=== PATIENT | female | born 1995 | race Caucasian/White ===

== ENCOUNTER 2019-01-25 00:52 | Observation (INO) | payer OTHER ==
[2019-01-25 04:56] LABS: BILIRUBIN,URINE NEGATIVE (NEG); CLARITY,URINE CLEAR; COLOR,URINE YELLOW; NITRITE,URINE NEGATIVE (NEG); PROTEIN,URINE NEGATIVE (NEG-TRACE); UROBILINOGEN,URINE 0.2 mg/dL (0.2 mg/dL)
[2019-01-25 05:06] LABS: BACTERIA,URINE MANY /HPF (0-FEW); RBC,URINE OCC /HPF (0-2); SQUAMOUS EPITHELIAL CELL,UR MOD /LPF
== END 2019-01-25 01:15 | disposition home or self-care (01) ==
LOC: 3 SO LND 00:52
PROVIDERS: ADMIT Obstetrics & Gynecology; ATTEND Obstetrics & Gynecology
DX: O36.8130 Decreased fetal movements, third trimester, not applicable or unspecified (principal); Z3A.38 38 weeks gestation of pregnancy
CPT/HCPCS: 81001; 87086; G0379; 59025; G0378

== ENCOUNTER 2019-02-05 18:25 | Inpatient (IN) | payer OTHER ==
[~2019-02-05] VITALS: Ht 152.4 cm; Wt 117.5 kg
[2019-02-05] MEDS ORDERED: TERBUTALINE 1 MG/ML VIAL. SQ PRN (19:00)
[2019-02-05] MEDS ORDERED: fentaNYL PF VIAL 100 MCG/2 ML VIAL IV PRN (19:00)
[2019-02-05] MEDS ORDERED: LIDOCAINE 1% PF 30 ML VIAL. INJ PRN (19:00)
[2019-02-05] MEDS ORDERED: ONDANSETRON PF 4 MG/2 ML VIAL. IV PRN (19:00)
[2019-02-05] MEDS ORDERED: OXYTOCIN 30 UNIT/500 ML PREMIX 500 ML IV PRN ×2 (19:00)
[2019-02-05] MEDS ORDERED: NALBUPHINE 10 MG/ML AMPUL. IV PRN ×2 (19:00)
[2019-02-05] MEDS ORDERED: MAG HYDROX/ALUMINUM HYD/SIMETH 30 ML ORAL.SUSP PO PRN (19:00)
[2019-02-05] MEDS ORDERED: 0.9 % SODIUM CHLORIDE 10 ML DISP.SYRIN. IV PRN (19:00)
[2019-02-05] MEDS ORDERED: diphenhydrAMINE HCL 25 MG CAPSULE PO PRN (19:00)
[2019-02-05] MEDS ORDERED: DINOPROSTONE 10 MG SUPP.VAG VG ONE (19:00)
[2019-02-05] MEDS: IV RINGERS,LACTATED 1000ML 1,000 ML IV SCH (19:13)
[2019-02-05 19:26] VITALS: BP 113/71
[2019-02-05 19:36] LABS: BASO % 0 % (0-3); EOS % 0 % (0-3); HEMATOCRIT 37.9 % (36.0-47.0); HEMOGLOBIN 13.1 g/dL (12.0-15.5); LYMPH # 1.5 x10^3/uL (1.0-4.8); LYMPH % 13 % (24-48); MEAN CORPUSCULAR HEMOGLOBIN 33 pg (25-35); MEAN CORPUSCULAR HGB CONC 35 g/dL (31-37); MEAN CORPUSCULAR VOLUME 97 fL (79-100); MONO # 0.5 x10^3/uL (0.0-1.1); MONO % 4 % (0-9); NEUT # 9.3 x10^3/uL (1.8-7.7); NEUT % 82 % (31-73); PLATELET COUNT 138 x10^3/uL (140-400); RED BLOOD COUNT 3.93 x10^6/uL (3.50-5.40); RED CELL DISTRIBUTION WIDTH 13.7 % (11.5-14.5); WHITE BLOOD COUNT 11.3 x10^3/uL (4.0-11.0)
--- NOTE | 2019-02-06 06:21 | PDOC1 ---
OB - History Hx of Present Care: Good Care Ultrasounds: No ultrasounds Obstetrical Complications: None Medical Complications: None Past Family/Social History * Past Medical, Surgical, Family and Obstetric Histories reviewed from chart. Rubella: Immune RPR/VDRL: Negative GBS Status: Negative HBsAG: Negative OB - Chief Complaint & HPI Date of Admission: Date of Admission: Feb 05, 2019 at 18:25 Chief Complaint/History : 1 Para: 0 EGA: 40 Reason for admission: induction of labor Indication for induction: post dates Admission Nurse Assessment Rev: Yes OB - Admission Exam Physical Exam Vitals: VS - Last 72 Hours, by Label Date Time Temp Pulse Resp B/P (MAP) Pulse Ox O2 Delivery O2 Flow Rate FiO2 02/05/19 19:26 98.6 100 18 113/71 (85) 98.6 HEENT: Normal Heart: Regular Rate Lungs: Clear Abdomen: Gravid, Non tender, Soft Extremities: Edema Reflexes: Normal Cervical Dilatation: 2cm Effacement: 75% Station: -3 Membranes: Intact Heart Rate: Normal Accelerations: Accelerations Present Decelerations: No decelerations Contractions on Admission: None Text A: 40 wks IUP IOL post term P: Admit induction cervidil, then pitocin. DANTE JOHNSON Jr, MD Feb 06, 2019 06:21
[2019-02-06] MEDS: IV RINGERS,LACTATED 1000ML 1,000 ML IV SCH ×3 (09:40→18:46)
[2019-02-06] MEDS ORDERED: ACETAMINOPHEN 325 MG TABLET. PO PRN (12:15)
[2019-02-06] MEDS ORDERED: IV RINGERS,LACTATED 1000ML 1,000 ML IV SCH (12:49)
[2019-02-06] MEDS ORDERED: ROPIVacaine 0.2% PF 10 ML VIAL. ONE ×3 (12:51→21:51)
[2019-02-06] MEDS ORDERED: NALOXONE 0.4 MG/ML VIAL. IV PRN (13:00)
[2019-02-06] MEDS ORDERED: BUPIVACAINE MPF 0.25% 30 ML VIAL. EPID PRN (13:00)
[2019-02-06] MEDS ORDERED: ROPIVacaine 0.2% IN 0.9%NACL PF 40 MG/20 ML DISP.SYRIN. EPID PRN (13:00)
[2019-02-06] MEDS ORDERED: fentaNYL PF VIAL 100 MCG/2 ML VIAL EPID PRN (13:00)
[2019-02-06] MEDS: L&D EPIDURAL SYRINGE 50 ML EPID PRN ×3 (13:27→22:01)
[2019-02-06] MEDS ORDERED: L&D EPIDURAL 50 ML SYRINGE. ONE (17:00)
[2019-02-07] MEDS ORDERED: oxyCODONE/APAP 5/325 1 TAB TABLET PO PRN (01:00)
[2019-02-07] MEDS ORDERED: SIMETHICONE 80 MG TAB.CHEW PO PRN (01:00)
[2019-02-07] MEDS ORDERED: ZOLPIDEM 5 MG TABLET. PO PRN (01:00)
[2019-02-07] MEDS ORDERED: MAGNESIUM HYDROXIDE 2,400 MG/30 ML ORAL.SUSP. PO PRN (01:00)
[2019-02-07] MEDS ORDERED: MMR per PROTOCOL. MC PRN (01:00)
[2019-02-07] MEDS ORDERED: BENZOCAINE 20% TOPICAL AEROSOL SPRAY 57GM CAN. TP PRN (01:00)
[2019-02-07] MEDS ORDERED: 0.9 % SODIUM CHLORIDE 10 ML DISP.SYRIN. IV PRN (01:00)
[2019-02-07] MEDS ORDERED: ACETAMINOPHEN 325 MG TABLET. PO PRN (01:00)
[2019-02-07] MEDS ORDERED: MAG HYDROX/ALUMINUM HYD/SIMETH 30 ML ORAL.SUSP PO PRN (01:00)
[2019-02-07] MEDS ORDERED: HYDROCORTISONE 1% TOPICAL OINTMENT 30GM TUBE. TP PRN (01:00)
[2019-02-07] MEDS ORDERED: PHENYLEPH/MINERAL OIL/PETROLAT RECTAL OINTMENT TUBE. RC PRN (01:00)
[2019-02-07] MEDS ORDERED: diphenhydrAMINE HCL 25 MG CAPSULE PO PRN (01:00)
[2019-02-07] MEDS ORDERED: OXYTOCIN 30 UNIT/500 ML PREMIX 500 ML IV PRN (01:00)
[2019-02-07] MEDS: IV RINGERS,LACTATED 1000ML 1,000 ML IV SCH ×3 (02:46→17:10)
[2019-02-07 03:45] VITALS: BP 100/40
[2019-02-07 05:45] VITALS: BP 123/66
[2019-02-07] MEDS: DOCUSATE SODIUM 100 MG CAPSULE. PO PRN ×2 (08:52→17:11)
[2019-02-07] MEDS: FERROUS SULFATE 325 MG TABLET. PO SCH ×2 (08:53→17:11)
[2019-02-07] MEDS: IBUPROFEN 400 MG TABLET. PO PRN ×2 (08:54→20:58)
[2019-02-07 09:00] VITALS: BP 124/82
--- NOTE | 2019-02-07 12:25 | PDOC ---
VAGINAL DELIVERY DATE DATE: 02/07/19 TIME: 12:24 : 1 Para: 1 EGA: 40 VAGINAL DELIVERY: VTX VACCUM ASSISTED: No PLACENTA: Spontaneous 8/9 WEIGHT Weight [pending ] Nuchal Cord: No Amniotic Fluid: Clear PAIN: Epidural EPISIOTOMY: No EXTENSION: Yes (2nd degree midline laceration) REPAIRED WITH 2-0 vicryl EBL 300 ml COMPLICATIONS none CONDITION pt. stable Signs of Intrauterine Infectio: None Shoulder Dystocia: No DANTE JOHNSON Jr, MD Feb 07, 2019 12:25
[2019-02-07] MEDS ORDERED: DIPHTH,PERTUSS(ACELL),TET TOX 0.5 ML DISP.SYRIN. VAX IM ONE (12:30)
[2019-02-07 12:36] VITALS: BP 114/73
[2019-02-07 15:06] VITALS: BP 128/78
[2019-02-07 20:00] VITALS: BP 123/69
[2019-02-08] MEDS: IV RINGERS,LACTATED 1000ML 1,000 ML IV SCH ×2 (02:46→10:46)
[2019-02-08 05:04] LABS: BASO % 0 % (0-3); EOS # 0.2 x10^3/uL (0.0-0.7); EOS % 2 % (0-3); HEMATOCRIT 29.6 % (36.0-47.0); HEMOGLOBIN 10.2 g/dL (12.0-15.5); LYMPH # 2.1 x10^3/uL (1.0-4.8); LYMPH % 21 % (24-48); MEAN CORPUSCULAR HEMOGLOBIN 34 pg (25-35); MEAN CORPUSCULAR HGB CONC 35 g/dL (31-37); MEAN CORPUSCULAR VOLUME 98 fL (79-100); MONO # 0.6 x10^3/uL (0.0-1.1); MONO % 6 % (0-9); NEUT # 6.9 x10^3/uL (1.8-7.7); NEUT % 71 % (31-73); PLATELET COUNT 105 x10^3/uL (140-400); RED BLOOD COUNT 3.01 x10^6/uL (3.50-5.40); WHITE BLOOD COUNT 9.7 x10^3/uL (4.0-11.0)
[2019-02-08 05:13] VITALS: BP 140/83
[2019-02-08] MEDS ORDERED: FERROUS SULFATE 325 MG TABLET. PO SCH (08:00)
[2019-02-08] MEDS: FERROUS SULFATE 325 MG TABLET. PO SCH ×2 (09:08→17:19)
--- NOTE | 2019-02-08 10:01 | PDOC ---
OB Progress Note Date of Service 02/08/19 Time of Evaluation 1000 Notes Pt. feeling well. No complaints. Breast feeding. Lab Laboratory Tests Test 02/08/19 04:40 White Blood Count 9.7 x10^3/uL (4.0-11.0) Red Blood Count 3.01 x10^6/uL (3.50-5.40) Hemoglobin 10.2 g/dL (12.0-15.5) Hematocrit 29.6 % (36.0-47.0) Mean Corpuscular Volume 98 fL (79-100) Mean Corpuscular Hemoglobin 34 pg (25-35) Mean Corpuscular Hemoglobin Concent 35 g/dL (31-37) Red Cell Distribution Width 14.0 % (11.5-14.5) Platelet Count 105 x10^3/uL (140-400) Neutrophils (%) (Auto) 71 % (31-73) Lymphocytes (%) (Auto) 21 % (24-48) Monocytes (%) (Auto) 6 % (0-9) Eosinophils (%) (Auto) 2 % (0-3) Basophils (%) (Auto) 0 % (0-3) Neutrophils # (Auto) 6.9 x10^3/uL (1.8-7.7) Lymphocytes # (Auto) 2.1 x10^3/uL (1.0-4.8) Monocytes # (Auto) 0.6 x10^3/uL (0.0-1.1) Eosinophils # (Auto) 0.2 x10^3/uL (0.0-0.7) Basophils # (Auto) 0.0 x10^3/uL (0.0-0.2) Laboratory Tests Test 02/08/19 04:40 White Blood Count 9.7 x10^3/uL (4.0-11.0) Red Blood Count 3.01 x10^6/uL (3.50-5.40) Hemoglobin 10.2 g/dL (12.0-15.5) Hematocrit 29.6 % (36.0-47.0) Mean Corpuscular Volume 98 fL (79-100) Mean Corpuscular Hemoglobin 34 pg (25-35) Mean Corpuscular Hemoglobin Concent 35 g/dL (31-37) Red Cell Distribution Width 14.0 % (11.5-14.5) Platelet Count 105 x10^3/uL (140-400) Neutrophils (%) (Auto) 71 % (31-73) Lymphocytes (%) (Auto) 21 % (24-48) Monocytes (%) (Auto) 6 % (0-9) Eosinophils (%) (Auto) 2 % (0-3) Basophils (%) (Auto) 0 % (0-3) Neutrophils # (Auto) 6.9 x10^3/uL (1.8-7.7) Lymphocytes # (Auto) 2.1 x10^3/uL (1.0-4.8) Monocytes # (Auto) 0.6 x10^3/uL (0.0-1.1) Eosinophils # (Auto) 0.2 x10^3/uL (0.0-0.7) Basophils # (Auto) 0.0 x10^3/uL (0.0-0.2) Medications Current Medications Sodium Chloride (Normal Saline Flush) 3 ml QSHIFT PRN IV AFTER MEDS AND BLOOD DRAWS; Start 02/05/19 at 19:00 Ringer's Solution 1,000 ml @ 125 mls/hr Q8H IV Last administered on 02/06/19at 13:53; Start 02/05/19 at 18:46 Nalbuphine HCl (Nubain) 5 mg PRN Q1HR PRN IV Mild to moderate labor pain; Start 02/05/19 at 19:00; Stop 02/07/19 at 09:54; Status DC Nalbuphine HCl (Nubain) 10 mg PRN Q1HR PRN IV Severe labor pain; Start 9 at 19:00; Stop 02/07/19 at 09:55; Status DC Fentanyl Citrate (Fentanyl 2ml Vial) 100 mcg PRN Q30MIN PRN IV Severe pain Last administered on 02/06/19at 12:31; Start 02/05/19 at 19:00 Ondansetron HCl (Zofran) 4 mg PRN Q4HRS PRN IV NAUSEA/VOMITING; Start 02/05/19 at 19:00 Al Hydroxide/Mg Hydroxide (Mylanta Plus Xs) 30 ml PRN Q4HRS PRN PO HEARTBURN / GAS; Start 02/05/19 at 19:00; Stop 02/07/19 at 09:55; Status DC Terbutaline Sulfate (Brethine) 0.25 mg 1X PRN PRN SQ SEE COMMENTS; Start 02/05/19 at 19:00; Stop 02/06/19 at 18:59; Status DC Lidocaine HCl (Xylocaine 1% Pf 30ml Vial) 30 ml 1X PRN PRN INJ SEE COMMENTS; Start 02/05/19 at 19:00; Stop 02/07/19 at 18:59; Status DC Oxytocin/Sodium Chloride 500 ml @ 0 mls/hr CONT PRN IV SEE I/O RECORD; Start 02/05/19 at 19:00 Oxytocin/Sodium Chloride 500 ml @ 0 mls/hr CONT PRN PRN IV Post delivery bleeding Last administered on 02/06/19at 06:06; Start 02/05/19 at 19:00 Dinoprostone (Cervidil) 10 mg 1X ONCE VG Last administered on 02/05/19at 19:13; Start 02/05/19 at 19:00; Stop 02/05/19 at 19:01; Status DC Diphenhydramine HCl (Benadryl) 50 mg PRN QHS PRN PO INSOMNIA Last administered on 02/06/19at 02:13; Start 02/05/19 at 19:00 Acetaminophen (Tylenol) 650 mg PRN Q6HRS PRN PO HEADACHE Last administered on 02/06/19at 12:25; Start 02/06/19 at 12:15; Stop 02/07/19 at 09:55; Status DC Ringer's Solution 1,000 ml @ 1,000 mls/hr Q1H IV Last administered on 02/06/19at 19:04; Start 02/06/19 at 12:49; Stop 02/06/19 at 13:48; Status DC Naloxone HCl (Narcan) 0.04 mg PRN Q1MIN PRN IV SEE COMMENTS; Start 02/06/19 at 13:00 Fentanyl Citrate (Fentanyl 2ml Vial) 100 mcg PRN 1X PRN EPID FOR ANESTHESIA; Start 02/06/19 at 13:00; Stop 02/07/19 at 12:59; Status DC Bupivacaine HCl (Sensorcaine Mpf 0.25%) 10 ml PRN 1X PRN EPID FOR ANESTHESIA; Start 02/06/19 at 13:00; Stop 02/07/19 at 12:59; Status DC Fentanyl Citrate 50 ml @ 14 mls/hr CONT PRN EPID PAIN Last administered on 02/06/19at 22:01; Start 02/06/19 at 13:00 Ropivacaine/ Sodium Chloride (ROPIVacaine 0.2% - 0.9%NACL PF) 40 mg 1X PRN PRN EPID PER ANESTHESIA; Start 02/06/19 at 13:00 Ropivacaine (Naropin 0.2%) 10 ml STK-MED ONCE .ROUTE ; Start 02/06/19 at 12:51; Stop 02/06/19 at 12:51; Status DC Ropivacaine (Naropin 0.2%) 10 ml STK-MED ONCE .ROUTE ; Start 02/06/19 at 21:51; Stop 02/06/19 at 21:51; Status DC Sodium Chloride (Normal Saline Flush) 10 ml QSHIFT PRN IV AFTER MEDS AND BLOOD DRAWS; Start 02/07/19 at 01:00 Oxytocin/Sodium Chloride 500 ml @ 62.5 mls/hr CONT PRN IV SEE I/O RECORD; Start 02/07/19 at 01:00; Stop 02/07/19 at 08:59; Status DC Acetaminophen (Tylenol) 650 mg PRN Q6HRS PRN PO MILD PAIN / TEMP; Start 02/07/19 at 01:00 Ibuprofen (Motrin) 800 mg PRN Q8HRS PRN PO INFLAMMATION/PAIN PREVENTION Last administered on 02/07/19at 20:58; Start 02/07/19 at 01:00 Docusate Sodium (Colace) 100 mg PRN BID PRN PO CONSTIPATION Last administered on 02/07/19at 17:11; Start 02/07/19 at 01:00 Magnesium Hydroxide (Milk Of Magnesia) 2,400 mg PRN DAILY PRN PO CONSTIPATION; Start 02/07/19 at 01:00 Al Hydroxide/Mg Hydroxide (Mylanta Plus Xs) 30 ml PRN Q4HRS PRN PO HEARTBURN / GAS; Start 02/07/19 at 01:00 Simethicone (Gas-X) 80 mg PRN AFTMEALHC PRN PO GAS / BLOATING; Start 02/07/19 at 01:00 Diphenhydramine HCl (Benadryl) 25 mg PRN Q6HRS PRN PO ITCHING; Start 02/07/19 at 01:00 Benzocaine (Americaine) 1 spray PRN QID PRN TP TOPICAL PAIN; Start 02/07/19 at 01:00 Phenyleph/Shark Oil/Min Oil/Petrol (Preparation H) 1 archana PRN QID PRN RC RECTAL PAIN; Start 02/07/19 at 01:00 Hydrocortisone (Cortaid) 1 archana PRN QID PRN TP PERINEAL PAIN; Start 02/07/19 at 01:00 Ferrous Sulfate (Feosol) 325 mg BIDWMEALS PO ; Start 02/08/19 at 08:00; Stop 02/07/19 at 08:42; Status DC Zolpidem Tartrate (Ambien) 5 mg PRN QHS PRN PO INSOMNIA, MAY REPEAT X1; Start 02/07/19 at 01:00 Info (Do NOT chart on this placeholder) 1 ea 1X PRN PRN MC SEE COMMENTS; Start 02/07/19 at 01:00 Info (Do NOT chart on this placeholder) 1 ea 1X PRN PRN MC SEE COMMENTS; Start 02/07/19 at 01:00 Oxycodone/ Acetaminophen (Percocet 5/325) 2 tab PRN Q4HRS PRN PO MODERATE PAIN, SEVERE PAIN Last administered on 02/07/19at 15:00; Start 02/07/19 at 01:00 Ferrous Sulfate (Feosol) 325 mg BIDWMEALS PO Last administered on 02/08/19at 09:08; Start 02/07/19 at 08:45 Fentanyl Citrate (Jqylwpck-Vvhby-YH 3 Mcg-0.1%) 50 ml STK-MED ONCE .ROUTE ; Start 02/06/19 at 17:00; Stop 02/07/19 at 09:18; Status DC Ropivacaine (Naropin 0.2%) 20 ml STK-MED ONCE .ROUTE ; Start 02/06/19 at 17:00; Stop 02/07/19 at 09:18; Status DC Diphtheria/ Tetanus/Acell Pertussis (Boostrix) 0.5 ml ONCE ONCE VAX IM ; Start 02/07/19 at 12:30; Stop 02/07/19 at 12:31; Status DC Exam Abd: soft, non tender, fundus firm Assessment PPD#1 s/p Plan of Care: Continue current Tx, Mgmt PEGHEE,DANTE G Jr MD Feb 08, 2019 10:01
[2019-02-08 10:51] VITALS: BP 151/81
[2019-02-08] MEDS: DOCUSATE SODIUM 100 MG CAPSULE. PO PRN (17:22)
[2019-02-08 20:25] VITALS: BP 130/77
[2019-02-08] MEDS: IBUPROFEN 400 MG TABLET. PO PRN (23:01)
[2019-02-09 05:54] VITALS: BP 122/69
[2019-02-09 08:48] VITALS: BP 147/94
[2019-02-09] MEDS: FERROUS SULFATE 325 MG TABLET. PO SCH (09:39)
[2019-02-09] MEDS: IBUPROFEN 400 MG TABLET. PO PRN (09:58)
[2019-02-09 12:03] VITALS: BP 126/78
--- NOTE | 2019-02-09 13:31 | PDOC3 ---
OB DISCHARGE SUMMARY DATE OF ADMISSION: 02/06/19 DATE OF DISCHARGE: 02/09/19 REASON FOR ADMISSION: Induction of labor INTRAPARTUM PROCEDURES: Spontanous Vag Deliv DISCHARGE DIAGNOSIS: Term Delivered DISCHARGE INFORMATION: Activity (ad carl), Diet (regular), Instructions (pelvic rest x 6 wks) HOSPITAL COURSE Term gestation delivered vaginally without complications DANTE JOHNSON Jr, MD Feb 09, 2019 13:31
[2019-02-09] MEDS ORDERED: IBUP-1027 PO (13:32)
--- NOTE | 2019-02-09 13:32 | DISCH ---
DISCHARGE INSTRUCTIONS Condition on Discharge Condition on Discharge: Stable Activity After Discharge Activity Instructions for Disc: Activity as tolerated Lifting Instructions after Dis: No heavy lifting Driving Instructions after Dis: Do not drive today Diet after Discharge Diet after Discharge: Regular Contacting the [facility]eli after DC Call your doctor for: Concerns you may have Follow-Up Follow up with: Dr. Kwon in 6 wks DANTE KWON Jr, MD Feb 09, 2019 13:32
--- NOTE | 2019-02-09 14:05 | NUR ---
Discharge Note: WANDY ANSARI [address] Discharge instructions and discharge home medications reviewed with Patient and a copy given. All questions have been answered and understanding verbalized. Pt. instructions and handouts were given. Pt. educated about and encouraged to use "[facility]" resource. Patient discharged to home with self-care. Pt. will be boarding until baby is discharged. Boarding education and information was provided to pt. and family.
== END 2019-02-09 14:05 | disposition home or self-care (01) | DRG 806 ==
LOC: 3 SO LND 18:25 → 3 NORTH 02-07 03:45
PROVIDERS: ADMIT Obstetrics & Gynecology; ATTEND Obstetrics & Gynecology
PROC: 10E0XZZ Delivery of Products of Conception, External Approach (ICD-10-PCS; principal; 2019-02-07)
PROC: 0KQM0ZZ Repair Perineum Muscle, Open Approach (ICD-10-PCS; 2019-02-07)
PROC: 3E0R3BZ Introduction of Anesthetic Agent into Spinal Canal, Percutaneous Approach (ICD-10-PCS; 2019-02-07)
PROC: 00HU33Z Insertion of Infusion Device into Spinal Canal, Percutaneous Approach (ICD-10-PCS; 2019-02-07)
DX: O48.0 Post-term pregnancy (principal); R71.0 Precipitous drop in hematocrit; Z37.0 Single live birth; O70.1 Second degree perineal laceration during delivery; Z3A.40 40 weeks gestation of pregnancy; O75.89 Other specified complications of labor and delivery
CPT/HCPCS: 36415; 85025; 86592; 86850; 86900; 86901; 87340; 90471; 90715; J2590; J2795; J3010; J7120; Q0163; G0378